=== PATIENT | female | born 1935 | race Caucasian/White ===

== ENCOUNTER 2019-03-12 20:00 | Inpatient (IN) | payer OTHER, MEDICAID ==
[~2019-03-12] VITALS: Ht 154.9 cm; Wt 49.9 kg
[2019-03-12 20:00] VITALS: BP_SYST 184
[~2019-03-12 20:00] MED LIST: ALPHAGANP EACH EYE; ASPI-1153 PO; ATOR10TA68 PO; BETH25TA10 PO; BIMA2.5D5 BOTH EYES; COLC0.6T67 PO; DOCU250C14 PO; HUM10VIA7 SUBCUT; HYDR25TA4 PO; LEVO100T9 PO; METO-442 PO; QUET300T2 PO; ZALE5CAP2 PO
[2019-03-12] MEDS ORDERED: IPRATROPIUM/ALBUTEROL SULFATE 3 ML AMPUL.NEB (DUONEB) INH ONE (20:30)
[2019-03-12] MEDS ORDERED: methylPREDNISolone SOD SUCC/PF 62.5 MG/ML VIAL IVP ONE (20:30)
[2019-03-12] MEDS ORDERED: ALBUTEROL SULFATE 0.083% 2.5 MG/3 ML VIAL.NEB INH ONE (20:30)
[2019-03-12 20:39] LABS: BASOPHILS # (AUTO) 0.2 K/uL (0.0-0.2); BASOPHILS % (AUTO) 1.8 % (0.0-2.0); EOSINOPHILS # (AUTO) 0.2 K/uL (0.0-0.4); EOSINOPHILS % (AUTO) 1.4 % (0.0-4.0); HEMATOCRIT 38.3 % (36-48); HEMOGLOBIN 12.5 g/dL (12.0-16.0); LYMPHOCYTES # (AUTO) 4.7 K/uL (1.0-5.5); LYMPHOCYTES % (AUTO) 37.5 % (20.5-51.5); MEAN CORPUSCULAR HEMOGLOBIN 30 pg (27-31); MEAN CORPUSCULAR HGB CONC 33 % (32-36); MEAN CORPUSCULAR VOLUME 92 fL (79.0-98.0); MONOCYTES % (AUTO) 7.7 % (1.7-9.3); NEUTROPHILS # (AUTO) 6.5 K/uL (1.8-7.7); NEUTROPHILS % (AUTO) 51.6 % (40.0-70.0); PLATELET COUNT (AUTO) 415 K/uL (130-430); RED BLOOD CELL COUNT(AUTO) 4.18 MIL/uL (4.2-6.2); RED CELL DISTRIBUTION WIDTH 13.7 % (9.0-15.0); WHITE BLOOD COUNT (AUTO) 12.5 K/uL (4.8-10.8)
[2019-03-12 21:10] LABS: ALANINE AMINOTRANSFERASE 31 U/L (12-78); ALBUMIN 3.6 g/dL (3.4-4.8); ANION GAP 9 (5-15); ASPARTATE AMINOTRANSFERASE 31 U/L (10-37); CHLORIDE 95 mmol/L (98-107); CREATININE 1.14 mg/dL (0.55-1.30); GLUCOSE 261 mg/dL (70-99); SODIUM SERUM 136 mmol/L (136-145); TOTAL BILIRUBIN 0.2 mg/dL (0.0-1.0); UREA NITROGEN, BLOOD 16 mg/dL (8-21)
[2019-03-12 21:12] LABS: CALCIUM 9.7 mg/dL (8.4-11.0)
[2019-03-12] MEDS ORDERED: GLUXR500 PO (21:45)
[2019-03-12] MEDS ORDERED: IPRA4AER INH (21:45)
[2019-03-12] MEDS ORDERED: MORPHINE SULFATE SL (21:45)
[2019-03-12] MEDS ORDERED: DOCU-144 PO (21:45)
[2019-03-12] MEDS ORDERED: ACET-2165 RC (21:45)
[2019-03-12] MEDS ORDERED: LISI-209 PO (21:45)
[2019-03-12] MEDS ORDERED: PRO40 PO (21:45)
[2019-03-12] MEDS ORDERED: BENZ0.5T43 PO (21:45)
[2019-03-12] MEDS ORDERED: SER100 PO (21:45)
[2019-03-12] MEDS ORDERED: ESCI10TA PO (21:45)
[2019-03-12] MEDS ORDERED: PROC10TA13 PO (21:45)
[2019-03-12] MEDS ORDERED: NACL 0.9% 1,700 ML IV ONE (21:45)
[2019-03-12] MEDS ORDERED: INSU100V11 SQ (21:45)
[2019-03-12] MEDS ORDERED: TRAZ-219 PO (21:45)
[2019-03-12] MEDS ORDERED: XALEYE OP (21:45)
[2019-03-12] MEDS ORDERED: SSREG SUBCUT (21:45)
[2019-03-12] MEDS ORDERED: FURO-149 PO (21:45)
[2019-03-12] MEDS ORDERED: TRAMADOL PO (21:45)
[2019-03-12] MEDS ORDERED: BIMA2.5D5 OP (21:45)
[2019-03-12] MEDS ORDERED: LORA-259 PO (21:45)
[2019-03-12] MEDS ORDERED: ATROPINE SULFATE 1% SL (21:45)
[2019-03-12] MEDS ORDERED: PROC25SU2 RC (21:45)
[2019-03-12 22:20] VITALS: BP_SYST 174
[2019-03-12 22:40] VITALS: BP_SYST 174
[2019-03-12 22:43] VITALS: BP_SYST 184
[2019-03-12 23:00] VITALS: BP_SYST 194
[2019-03-12] MEDS ORDERED: LORazepam 1 MG TABLET PO PRN (23:15)
[2019-03-12] MEDS ORDERED: ACETAMINOPHEN 325 MG TABLET PO PRN (23:15)
[2019-03-12] MEDS ORDERED: PROCHLORPERAZINE MALEATE 10 MG TABLET PO PRN (23:15)
[2019-03-12] MEDS ORDERED: D5W 1,000 ML IV PRN (23:24)
[2019-03-12] MEDS ORDERED: D5/0.45 NS 1,000 ML IV SCH (23:24)
[2019-03-12] MEDS ORDERED: DEXTROSE 50% JECT 50 ML DISP.SYRIN IVP PRN (23:30)
[2019-03-12] MEDS ORDERED: ALBUTEROL SULFATE 0.083% 2.5 MG/3 ML VIAL.NEB INH PRN (23:30)
[2019-03-12] MEDS ORDERED: IPRATROPIUM BROM 0.5 MG/2.5 ML VIAL.NEB (ATROVENT) INH PRN (23:30)
[2019-03-12] MEDS ORDERED: GLUCOSE 15 GM GEL (in 37.5 GM TUBE) PO PRN (23:30)
[2019-03-12] MEDS: IPRATROPIUM/ALBUTEROL SULFATE 3 ML AMPUL.NEB (DUONEB) INH SCH (23:30)
[2019-03-12] MEDS ORDERED: ONDANSETRON HCL 4 MG/2 ML VIAL IVP PRN (23:30)
[2019-03-12] MEDS ORDERED: IPRATROPIUM/ALBUTEROL SULFATE 3 ML AMPUL.NEB (DUONEB) INH PRN (23:30)
[2019-03-12] MEDS ORDERED: IPRATROPIUM/ALBUTEROL SULFATE 3 ML AMPUL.NEB (DUONEB) ONE (23:43)
[2019-03-12] MEDS ORDERED: LORazepam 2 MG/ML VIAL ONE (23:51)
[2019-03-12] MEDS: LORazepam 2 MG/ML VIAL IM PRN (23:51)
[2019-03-13] VITALS (31 sets, daily range): BP systolic 71–193
[2019-03-13] MEDS: methylPREDNISolone SOD SUCC/PF 62.5 MG/ML VIAL IVP SCH ×4 (00:05→22:57)
[2019-03-13] MEDS ORDERED: methylPREDNISolone SOD SUCC/PF 62.5 MG/ML VIAL ONE (00:11)
[2019-03-13] MEDS ORDERED: LEVOFLOXACIN 500 MG/D5W 100 ML IV ONE ×2 (01:30→01:42)
[2019-03-13] MEDS: INSULIN REGULAR, HUMAN 100 UNITS/ML, 10 ML VIAL (humuLIN R) SUBCUT PRN ×6 (02:36→23:01)
[2019-03-13] MEDS: LORazepam 2 MG/ML VIAL IM PRN ×3 (03:22→06:36)
[2019-03-13] MEDS: IPRATROPIUM/ALBUTEROL SULFATE 3 ML AMPUL.NEB (DUONEB) INH SCH ×5 (03:57→23:23)
[2019-03-13] MEDS ORDERED: LORazepam 2 MG/ML VIAL IM PRN (05:30)
[2019-03-13 06:15] LABS: BASOPHILS # (AUTO) 0.2 K/uL (0.0-0.2); BASOPHILS % (AUTO) 1.1 % (0.0-2.0); HEMATOCRIT 35.1 % (36-48); HEMOGLOBIN 11.4 g/dL (12.0-16.0); LYMPHOCYTES # (AUTO) 0.8 K/uL (1.0-5.5); LYMPHOCYTES % (AUTO) 6.1 % (20.5-51.5); MEAN CORPUSCULAR HEMOGLOBIN 30 pg (27-31); MEAN CORPUSCULAR HGB CONC 33 % (32-36); MEAN CORPUSCULAR VOLUME 92 fL (79.0-98.0); MONOCYTES # (AUTO) 0.7 K/uL (0.0-1.0); MONOCYTES % (AUTO) 5.5 % (1.7-9.3); NEUTROPHILS # (AUTO) 11.6 K/uL (1.8-7.7); NEUTROPHILS % (AUTO) 87.3 % (40.0-70.0); PLATELET COUNT (AUTO) 376 K/uL (130-430); RED BLOOD CELL COUNT(AUTO) 3.82 MIL/uL (4.2-6.2); RED CELL DISTRIBUTION WIDTH 13.9 % (9.0-15.0); WHITE BLOOD COUNT (AUTO) 13.3 K/uL (4.8-10.8)
[2019-03-13 07:14] LABS: ALANINE AMINOTRANSFERASE 24 U/L (12-78); ALBUMIN 3.3 g/dL (3.4-4.8); ANION GAP 11 (5-15); ASPARTATE AMINOTRANSFERASE 24 U/L (10-37); CALCIUM 8.8 mg/dL (8.4-11.0); CHLORIDE 99 mmol/L (98-107); CREATININE 1.06 mg/dL (0.55-1.30); GLUCOSE 297 mg/dL (70-99); PHOSPHORUS 2.8 mg/dL (2.7-4.5); POTASSIUM 3.8 mmol/L (3.5-5.1); SODIUM SERUM 140 mmol/L (136-145); TOTAL BILIRUBIN 0.2 mg/dL (0.0-1.0); UREA NITROGEN, BLOOD 13 mg/dL (8-21)
[2019-03-13] MEDS ORDERED: traMADol HCL HCL 50 MG TABLET (ULTRAM) PO PRN (07:45)
[2019-03-13] MEDS ORDERED: LORazepam 2 MG/ML VIAL IVP PRN (08:30)
[2019-03-13] MEDS ORDERED: BRIMONIDINE TARTRATE 0.15% 5 mL EYE DROPS EACH EYE SCH (09:00)
[2019-03-13] MEDS: LEVOFLOXACIN 250 MG/D5W 50 ML IV SCH (09:00)
[2019-03-13] MEDS ORDERED: methylPREDNISolone SOD SUCC 40 MG/ML VIAL IVP SCH (09:00)
[2019-03-13] MEDS ORDERED: MIDAZOLAM HCL 5 MG/5 ML VIAL ONE ×2 (10:14→10:28)
[2019-03-13] MEDS ORDERED: PROPOFOL DRIP 100 ML IV ONE (10:52)
[2019-03-13] MEDS ORDERED: ENOXAPARIN SODIUM 40 MG/0.4 ML SYRINGE SUBCUT ONE (11:15)
[2019-03-13] MEDS: BRIMONIDINE TARTRATE 0.2% 5 mL EYE DROPS OP SCH ×3 (11:32→20:59)
[2019-03-13] MEDS: ASPIRIN 81 MG TABLET(ECOTRIN) PO SCH (11:33)
[2019-03-13] MEDS: DOCUSATE SODIUM 100 MG CAPSULE PO SCH ×2 (11:33→20:59)
[2019-03-13] MEDS: BENZTROPINE MESYLATE 1 MG TABLET PO SCH (11:33)
[2019-03-13] MEDS: CITALOPRAM HYDROBROMIDE 20 MG TABLET PO SCH (11:35)
[2019-03-13] MEDS: LISINOPRIL 5 MG TABLET PO SCH (11:35)
[2019-03-13] MEDS: FUROSEMIDE 40 MG TABLET PO SCH (11:36)
[2019-03-13] MEDS: PANTOPRAZOLE SODIUM 40 MG TAB PO SCH (11:41)
[2019-03-13] MEDS: LEVOTHYROXINE SODIUM 0.1 MG TABLET PO SCH (11:46)
[2019-03-13] MEDS: 0.45% NACL 1,000 ML IV SCH (12:21)
[2019-03-13] MEDS: LORazepam 2 MG/ML VIAL IVP PRN ×4 (14:25→20:17)
[2019-03-13] MEDS ORDERED: NS 50 ML IV ONE (15:30)
[2019-03-13] MEDS ORDERED: NOREPINEPHRINE BITARTRATE 4 MG in NS 246 ML IV PRN (15:30)
[2019-03-13] MEDS ORDERED: NS 500 ML IV ONE (15:30)
[2019-03-13] MEDS ORDERED: ETOMIDATE 20 MG/ 10 ML VIAL (AMIDATE) IVP ONE (15:53)
[2019-03-13] MEDS: PROPOFOL DRIP 100 ML IV PRN (20:07)
[2019-03-13] MEDS ORDERED: LATANOPROST 2.5 ML DROPS (XALATAN) OP SCH (21:00)
[2019-03-13] MEDS ORDERED: BIMATOPROST 0.01%, 2.5 ML EYE DROPS OP SCH (21:00)
[2019-03-13] MEDS: QUEtiapine FUMARATE 100 MG TABLET PO SCH (21:00)
[2019-03-13] MEDS ORDERED: INSULIN DETEMIR 20 UNIT SQ SCH (21:00)
[2019-03-13] MEDS: traZODone HCL 50 MG TABLET (DESYREL) PO PRN (21:00)
[2019-03-13] MEDS: LATANOPROST 2.5 ML DROPS (XALATAN) OP SCH (21:03)
[2019-03-13] MEDS: INSULIN GLARGINE 100 UNITS/ML 10 ML VIAL SUBCUT SCH (23:06)
[2019-03-14] VITALS (34 sets, daily range): BP systolic 90–133
[2019-03-14] MEDS: 0.45% NACL 1,000 ML IV SCH ×2 (02:35→18:51)
[2019-03-14] MEDS: LORazepam 2 MG/ML VIAL IVP PRN ×3 (02:35→18:51)
[2019-03-14] MEDS: INSULIN REGULAR, HUMAN 100 UNITS/ML, 10 ML VIAL (humuLIN R) SUBCUT PRN ×5 (02:39→22:55)
[2019-03-14] MEDS: IPRATROPIUM/ALBUTEROL SULFATE 3 ML AMPUL.NEB (DUONEB) INH SCH ×4 (03:20→19:37)
[2019-03-14] MEDS: PROPOFOL DRIP 100 ML IV PRN ×2 (04:13→14:45)
[2019-03-14] MEDS: methylPREDNISolone SOD SUCC/PF 62.5 MG/ML VIAL IVP SCH ×3 (05:03→22:49)
[2019-03-14 05:52] LABS: BASOPHILS % (AUTO) 0.2 % (0.0-2.0); HEMATOCRIT 29.5 % (36-48); HEMOGLOBIN 9.8 g/dL (12.0-16.0); LYMPHOCYTES # (AUTO) 1.6 K/uL (1.0-5.5); LYMPHOCYTES % (AUTO) 7.7 % (20.5-51.5); MEAN CORPUSCULAR HEMOGLOBIN 30 pg (27-31); MEAN CORPUSCULAR HGB CONC 33 % (32-36); MEAN CORPUSCULAR VOLUME 90 fL (79.0-98.0); MONOCYTES % (AUTO) 4.9 % (1.7-9.3); NEUTROPHILS # (AUTO) 18.1 K/uL (1.8-7.7); NEUTROPHILS % (AUTO) 87.2 % (40.0-70.0); PLATELET COUNT (AUTO) 316 K/uL (130-430); RED BLOOD CELL COUNT(AUTO) 3.27 MIL/uL (4.2-6.2); RED CELL DISTRIBUTION WIDTH 14.1 % (9.0-15.0); WHITE BLOOD COUNT (AUTO) 20.7 K/uL (4.8-10.8)
[2019-03-14 06:20] LABS: ALANINE AMINOTRANSFERASE 27 U/L (12-78); ALBUMIN 2.7 g/dL (3.4-4.8); ANION GAP 6 (5-15); ASPARTATE AMINOTRANSFERASE 31 U/L (10-37); CHLORIDE 101 mmol/L (98-107); CREATININE 0.95 mg/dL (0.55-1.30); GLUCOSE 166 mg/dL (70-99); SODIUM SERUM 137 mmol/L (136-145); TOTAL BILIRUBIN 0.1 mg/dL (0.0-1.0); UREA NITROGEN, BLOOD 19 mg/dL (8-21)
[2019-03-14 06:25] LABS: POTASSIUM 2.6 mmol/L (3.5-5.1)
[2019-03-14 06:34] LABS: CALCIUM 8.3 mg/dL (8.4-11.0)
[2019-03-14] MEDS ORDERED: KCL 40 mEq in 100 mL (PREMIX) 100 ML IV ONE (07:15)
[2019-03-14 07:57] LABS: ERYTHROCYTE SEDIMENTATION RATE 10 MM/HR (0-20)
[2019-03-14] MEDS: BRIMONIDINE TARTRATE 0.2% 5 mL EYE DROPS OP SCH ×3 (08:29→20:18)
[2019-03-14] MEDS: ASPIRIN 81 MG TABLET(ECOTRIN) PO SCH (08:29)
[2019-03-14] MEDS: LEVOFLOXACIN 250 MG/D5W 50 ML IV SCH (08:29)
[2019-03-14] MEDS: BENZTROPINE MESYLATE 1 MG TABLET PO SCH (08:32)
[2019-03-14] MEDS: LEVOTHYROXINE SODIUM 0.1 MG TABLET PO SCH (08:32)
[2019-03-14] MEDS: PANTOPRAZOLE SODIUM 40 MG TAB PO SCH (08:32)
[2019-03-14] MEDS: CITALOPRAM HYDROBROMIDE 20 MG TABLET PO SCH (08:32)
[2019-03-14] MEDS: FUROSEMIDE 40 MG TABLET PO SCH (08:33)
[2019-03-14] MEDS: DOCUSATE SODIUM 100 MG CAPSULE PO SCH ×2 (08:33→20:18)
[2019-03-14] MEDS: ENOXAPARIN SODIUM 40 MG/0.4 ML SYRINGE SUBCUT SCH (08:34)
[2019-03-14] MEDS: LISINOPRIL 5 MG TABLET PO SCH (09:00)
[2019-03-14] MEDS ORDERED: POTASSIUM CHLORIDE 20 MEQ/PKT PACKET PO ONE (10:00)
[2019-03-14] MEDS: AZITHROMYCIN 500 MG in NS 250 ML IV SCH (18:52)
[2019-03-14] MEDS: LATANOPROST 2.5 ML DROPS (XALATAN) OP SCH (20:17)
[2019-03-14] MEDS: CEFEPIME 1 GM in D5W 50 ML IV SCH (20:17)
[2019-03-14] MEDS: QUEtiapine FUMARATE 100 MG TABLET PO SCH (20:18)
[2019-03-14] MEDS: INSULIN GLARGINE 100 UNITS/ML 10 ML VIAL SUBCUT SCH (21:01)
[2019-03-14] MEDS: metroNIDAZOLE 500 mg/NS 100 ML IV SCH (22:48)
[2019-03-15] VITALS (35 sets, daily range): BP systolic 90–149
[2019-03-15] MEDS: IPRATROPIUM/ALBUTEROL SULFATE 3 ML AMPUL.NEB (DUONEB) INH SCH ×4 (00:34→20:00)
[2019-03-15] MEDS: INSULIN REGULAR, HUMAN 100 UNITS/ML, 10 ML VIAL (humuLIN R) SUBCUT PRN ×6 (03:13→23:20)
[2019-03-15] MEDS: PROPOFOL DRIP 100 ML IV PRN ×3 (03:47→17:52)
[2019-03-15 05:45] LABS: BASOPHILS # (AUTO) 0.1 K/uL (0.0-0.2); BASOPHILS % (AUTO) 0.3 % (0.0-2.0); HEMATOCRIT 31.2 % (36-48); HEMOGLOBIN 10.3 g/dL (12.0-16.0); LYMPHOCYTES # (AUTO) 5.6 K/uL (1.0-5.5); LYMPHOCYTES % (AUTO) 24.2 % (20.5-51.5); MEAN CORPUSCULAR HEMOGLOBIN 30 pg (27-31); MEAN CORPUSCULAR HGB CONC 33 % (32-36); MEAN CORPUSCULAR VOLUME 91 fL (79.0-98.0); MONOCYTES # (AUTO) 1.2 K/uL (0.0-1.0); MONOCYTES % (AUTO) 5.1 % (1.7-9.3); NEUTROPHILS # (AUTO) 16.4 K/uL (1.8-7.7); NEUTROPHILS % (AUTO) 70.4 % (40.0-70.0); PLATELET COUNT (AUTO) 304 K/uL (130-430); RED BLOOD CELL COUNT(AUTO) 3.42 MIL/uL (4.2-6.2); RED CELL DISTRIBUTION WIDTH 14.5 % (9.0-15.0); WHITE BLOOD COUNT (AUTO) 23.3 K/uL (4.8-10.8)
[2019-03-15 06:09] LABS: C-REACTIVE PROTEIN QUANT 2.2 mg/dL (0-0.5)
[2019-03-15 06:18] LABS: ALANINE AMINOTRANSFERASE 34 U/L (12-78); ALBUMIN 2.5 g/dL (3.4-4.8); ANION GAP 5 (5-15); ASPARTATE AMINOTRANSFERASE 38 U/L (10-37); CHLORIDE 103 mmol/L (98-107); CREATININE 0.79 mg/dL (0.55-1.30); GLUCOSE 247 mg/dL (70-99); POTASSIUM 4.2 mmol/L (3.5-5.1); SODIUM SERUM 135 mmol/L (136-145); TOTAL BILIRUBIN 0.3 mg/dL (0.0-1.0); UREA NITROGEN, BLOOD 23 mg/dL (8-21)
[2019-03-15] MEDS: methylPREDNISolone SOD SUCC/PF 62.5 MG/ML VIAL IVP SCH ×3 (06:42→21:13)
[2019-03-15] MEDS: metroNIDAZOLE 500 mg/NS 100 ML IV SCH ×3 (06:42→21:13)
[2019-03-15] MEDS: LORazepam 2 MG/ML VIAL IVP PRN ×3 (06:51→21:13)
[2019-03-15 07:45] LABS: ERYTHROCYTE SEDIMENTATION RATE 11 MM/HR (0-20)
[2019-03-15] MEDS: LISINOPRIL 5 MG TABLET PO SCH (09:00)
[2019-03-15] MEDS: CEFEPIME 1 GM in D5W 50 ML IV SCH ×2 (09:41→20:40)
[2019-03-15] MEDS: ASPIRIN 81 MG TABLET(ECOTRIN) PO SCH (09:41)
[2019-03-15] MEDS: DOCUSATE SODIUM 100 MG CAPSULE PO SCH ×2 (09:41→20:44)
[2019-03-15] MEDS: PANTOPRAZOLE SODIUM 40 MG TAB PO SCH (09:41)
[2019-03-15] MEDS: CITALOPRAM HYDROBROMIDE 20 MG TABLET PO SCH (09:41)
[2019-03-15] MEDS: BENZTROPINE MESYLATE 1 MG TABLET PO SCH (09:41)
[2019-03-15] MEDS: LEVOTHYROXINE SODIUM 0.1 MG TABLET PO SCH (09:41)
[2019-03-15] MEDS: FUROSEMIDE 40 MG TABLET PO SCH (09:43)
[2019-03-15] MEDS: BRIMONIDINE TARTRATE 0.2% 5 mL EYE DROPS OP SCH ×3 (09:43→20:42)
[2019-03-15] MEDS: ENOXAPARIN SODIUM 40 MG/0.4 ML SYRINGE SUBCUT SCH (09:44)
[2019-03-15] MEDS: 0.45% NACL 1,000 ML IV SCH (13:52)
[2019-03-15] MEDS: AZITHROMYCIN 500 MG in NS 250 ML IV SCH (17:51)
[2019-03-15] MEDS: LATANOPROST 2.5 ML DROPS (XALATAN) OP SCH (20:43)
[2019-03-15] MEDS: traZODone HCL 50 MG TABLET (DESYREL) PO PRN (20:44)
[2019-03-15] MEDS: QUEtiapine FUMARATE 100 MG TABLET PO SCH (20:44)
[2019-03-15] MEDS: INSULIN GLARGINE 100 UNITS/ML 10 ML VIAL SUBCUT SCH (20:49)
[2019-03-16] VITALS (33 sets, daily range): BP systolic 98–184
[2019-03-16] MEDS: IPRATROPIUM/ALBUTEROL SULFATE 3 ML AMPUL.NEB (DUONEB) INH SCH ×4 (01:37→19:58)
[2019-03-16] MEDS: INSULIN REGULAR, HUMAN 100 UNITS/ML, 10 ML VIAL (humuLIN R) SUBCUT PRN ×6 (03:12→23:19)
[2019-03-16 05:35] LABS: BASOPHILS # (AUTO) 0.1 K/uL (0.0-0.2); BASOPHILS % (AUTO) 0.5 % (0.0-2.0); EOSINOPHILS # (AUTO) 0.8 K/uL (0.0-0.4); EOSINOPHILS % (AUTO) 3.9 % (0.0-4.0); HEMATOCRIT 35.8 % (36-48); HEMOGLOBIN 11.6 g/dL (12.0-16.0); LYMPHOCYTES # (AUTO) 0.9 K/uL (1.0-5.5); LYMPHOCYTES % (AUTO) 4.4 % (20.5-51.5); MEAN CORPUSCULAR HEMOGLOBIN 30 pg (27-31); MEAN CORPUSCULAR HGB CONC 33 % (32-36); MEAN CORPUSCULAR VOLUME 92 fL (79.0-98.0); MONOCYTES # (AUTO) 3.5 K/uL (0.0-1.0); MONOCYTES % (AUTO) 17.9 % (1.7-9.3); NEUTROPHILS # (AUTO) 14.4 K/uL (1.8-7.7); NEUTROPHILS % (AUTO) 73.3 % (40.0-70.0); PLATELET COUNT (AUTO) 333 K/uL (130-430); RED CELL DISTRIBUTION WIDTH 14.8 % (9.0-15.0); WHITE BLOOD COUNT (AUTO) 19.7 K/uL (4.8-10.8)
[2019-03-16] MEDS: metroNIDAZOLE 500 mg/NS 100 ML IV SCH (05:53)
[2019-03-16 05:54] LABS: ANION GAP 10 (5-15); CALCIUM 8.8 mg/dL (8.4-11.0); CHLORIDE 104 mmol/L (98-107); CREATININE 0.88 mg/dL (0.55-1.30); GLUCOSE 197 mg/dL (70-99); POTASSIUM 4.3 mmol/L (3.5-5.1); SODIUM SERUM 142 mmol/L (136-145); UREA NITROGEN, BLOOD 23 mg/dL (8-21)
[2019-03-16] MEDS: methylPREDNISolone SOD SUCC/PF 62.5 MG/ML VIAL IVP SCH ×3 (05:54→21:02)
[2019-03-16 06:28] LABS: C-REACTIVE PROTEIN QUANT 3.8 mg/dL (0-0.5)
[2019-03-16] MEDS: CEFEPIME 1 GM in D5W 50 ML IV SCH ×2 (08:13→21:00)
[2019-03-16] MEDS: BRIMONIDINE TARTRATE 0.2% 5 mL EYE DROPS OP SCH ×3 (08:14→21:01)
[2019-03-16] MEDS: MORPHINE 2 MG/ML INJ. SYRINGE IVP PRN ×2 (08:15→11:43)
[2019-03-16] MEDS: ENOXAPARIN SODIUM 40 MG/0.4 ML SYRINGE SUBCUT SCH (08:18)
[2019-03-16] MEDS: PANTOPRAZOLE SODIUM 40 MG TAB PO SCH (08:19)
[2019-03-16] MEDS: BENZTROPINE MESYLATE 1 MG TABLET PO SCH (08:20)
[2019-03-16] MEDS: ASPIRIN 81 MG TABLET(ECOTRIN) PO SCH (08:20)
[2019-03-16] MEDS: DOCUSATE SODIUM 100 MG CAPSULE PO SCH ×2 (08:20→21:01)
[2019-03-16] MEDS: LEVOTHYROXINE SODIUM 0.1 MG TABLET PO SCH (08:20)
[2019-03-16] MEDS: FUROSEMIDE 40 MG TABLET PO SCH (08:20)
[2019-03-16] MEDS: CITALOPRAM HYDROBROMIDE 20 MG TABLET PO SCH (08:20)
[2019-03-16] MEDS: LISINOPRIL 5 MG TABLET PO SCH (08:21)
[2019-03-16] MEDS: LORazepam 2 MG/ML VIAL IVP PRN ×2 (08:43→11:43)
[2019-03-16 08:51] LABS: ERYTHROCYTE SEDIMENTATION RATE 22 MM/HR (0-20)
[2019-03-16] MEDS ORDERED: LINEZOLID 300 ML IV ONE (12:00)
[2019-03-16] MEDS: 0.45% NACL 1,000 ML IV SCH (13:19)
[2019-03-16] MEDS: AZITHROMYCIN 500 MG in NS 250 ML IV SCH (17:22)
[2019-03-16] MEDS: PROPOFOL DRIP 100 ML IV PRN (17:53)
[2019-03-16] MEDS: QUEtiapine FUMARATE 100 MG TABLET PO SCH (21:00)
[2019-03-16] MEDS: LATANOPROST 2.5 ML DROPS (XALATAN) OP SCH (21:01)
[2019-03-16] MEDS: INSULIN GLARGINE 100 UNITS/ML 10 ML VIAL SUBCUT SCH (21:04)
[2019-03-16] MEDS: LINEZOLID 300 ML IV SCH (23:17)
[2019-03-17] VITALS (33 sets, daily range): BP systolic 99–173
[2019-03-17] MEDS: IPRATROPIUM/ALBUTEROL SULFATE 3 ML AMPUL.NEB (DUONEB) INH SCH ×4 (02:01→19:40)
[2019-03-17] MEDS: INSULIN REGULAR, HUMAN 100 UNITS/ML, 10 ML VIAL (humuLIN R) SUBCUT PRN ×6 (02:15→22:31)
[2019-03-17] MEDS: methylPREDNISolone SOD SUCC/PF 62.5 MG/ML VIAL IVP SCH ×3 (06:01→22:29)
[2019-03-17] MEDS: 0.45% NACL 1,000 ML IV SCH (06:01)
[2019-03-17 06:12] LABS: BASOPHILS # (AUTO) 0.2 K/uL (0.0-0.2); BASOPHILS % (AUTO) 0.9 % (0.0-2.0); EOSINOPHILS % (AUTO) 0.1 % (0.0-4.0); HEMATOCRIT 31.6 % (36-48); HEMOGLOBIN 10.3 g/dL (12.0-16.0); LYMPHOCYTES # (AUTO) 0.8 K/uL (1.0-5.5); LYMPHOCYTES % (AUTO) 4.1 % (20.5-51.5); MEAN CORPUSCULAR HEMOGLOBIN 30 pg (27-31); MEAN CORPUSCULAR HGB CONC 33 % (32-36); MEAN CORPUSCULAR VOLUME 92 fL (79.0-98.0); MONOCYTES # (AUTO) 1.7 K/uL (0.0-1.0); NEUTROPHILS # (AUTO) 15.8 K/uL (1.8-7.7); NEUTROPHILS % (AUTO) 85.9 % (40.0-70.0); PLATELET COUNT (AUTO) 311 K/uL (130-430); RED BLOOD CELL COUNT(AUTO) 3.43 MIL/uL (4.2-6.2); RED CELL DISTRIBUTION WIDTH 14.9 % (9.0-15.0); WHITE BLOOD COUNT (AUTO) 18.4 K/uL (4.8-10.8)
[2019-03-17] MEDS: PROPOFOL DRIP 100 ML IV PRN ×2 (06:17→18:47)
[2019-03-17 06:40] LABS: ALANINE AMINOTRANSFERASE 44 U/L (12-78); ALBUMIN 2.2 g/dL (3.4-4.8); ASPARTATE AMINOTRANSFERASE 22 U/L (10-37); C-REACTIVE PROTEIN QUANT 1.6 mg/dL (0-0.5); CREATININE 0.83 mg/dL (0.55-1.30); GLUCOSE 252 mg/dL (70-99); POTASSIUM 4.1 mmol/L (3.5-5.1); TOTAL BILIRUBIN 0.4 mg/dL (0.0-1.0); UREA NITROGEN, BLOOD 26 mg/dL (8-21)
[2019-03-17 06:48] LABS: ANION GAP 5 (5-15); CHLORIDE 103 mmol/L (98-107); SODIUM SERUM 137 mmol/L (136-145)
[2019-03-17 07:07] LABS: CALCIUM 8.2 mg/dL (8.4-11.0)
[2019-03-17 08:47] LABS: ERYTHROCYTE SEDIMENTATION RATE 12 MM/HR (0-20)
[2019-03-17] MEDS: ASPIRIN 81 MG TABLET(ECOTRIN) PO SCH (09:06)
[2019-03-17] MEDS: LORazepam 2 MG/ML VIAL IVP PRN ×3 (09:06→18:49)
[2019-03-17] MEDS: PANTOPRAZOLE SODIUM 40 MG TAB PO SCH (09:06)
[2019-03-17] MEDS: MORPHINE 2 MG/ML INJ. SYRINGE IVP PRN (09:06)
[2019-03-17] MEDS: BENZTROPINE MESYLATE 1 MG TABLET PO SCH (09:07)
[2019-03-17] MEDS: FUROSEMIDE 40 MG TABLET PO SCH (09:07)
[2019-03-17] MEDS: DOCUSATE SODIUM 100 MG CAPSULE PO SCH ×2 (09:07→20:22)
[2019-03-17] MEDS: CITALOPRAM HYDROBROMIDE 20 MG TABLET PO SCH (09:07)
[2019-03-17] MEDS: LEVOTHYROXINE SODIUM 0.1 MG TABLET PO SCH (09:07)
[2019-03-17] MEDS: ENOXAPARIN SODIUM 40 MG/0.4 ML SYRINGE SUBCUT SCH (09:08)
[2019-03-17] MEDS: BRIMONIDINE TARTRATE 0.2% 5 mL EYE DROPS OP SCH ×3 (09:25→20:22)
[2019-03-17] MEDS: CEFEPIME 1 GM in D5W 50 ML IV SCH ×2 (09:25→20:20)
[2019-03-17] MEDS: LISINOPRIL 5 MG TABLET PO SCH (09:26)
[2019-03-17] MEDS: LINEZOLID 300 ML IV SCH ×2 (11:33→23:36)
[2019-03-17] MEDS: VANCOMYCIN HCL 1,000 MG in NS 250 ML IV SCH (16:22)
[2019-03-17 17:06] LABS: MYCOPLASMA PNEUMONIAE IgM <770 U/mL (0-769)
[2019-03-17] MEDS: AZITHROMYCIN 500 MG in NS 250 ML IV SCH (17:57)
[2019-03-17] MEDS: INSULIN GLARGINE 100 UNITS/ML 10 ML VIAL SUBCUT SCH (20:21)
[2019-03-17] MEDS: QUEtiapine FUMARATE 100 MG TABLET PO SCH (20:22)
[2019-03-17] MEDS: LATANOPROST 2.5 ML DROPS (XALATAN) OP SCH (20:23)
[2019-03-18] VITALS (30 sets, daily range): BP systolic 104–164
[2019-03-18] MEDS: IPRATROPIUM/ALBUTEROL SULFATE 3 ML AMPUL.NEB (DUONEB) INH SCH ×4 (01:06→19:45)
[2019-03-18] MEDS: INSULIN REGULAR, HUMAN 100 UNITS/ML, 10 ML VIAL (humuLIN R) SUBCUT PRN ×5 (02:12→23:18)
[2019-03-18] MEDS: methylPREDNISolone SOD SUCC/PF 62.5 MG/ML VIAL IVP SCH (05:00)
[2019-03-18] MEDS: PROPOFOL DRIP 100 ML IV PRN (05:08)
[2019-03-18 06:25] LABS: BASOPHILS # (AUTO) 0.1 K/uL (0.0-0.2); BASOPHILS % (AUTO) 0.5 % (0.0-2.0); EOSINOPHILS % (AUTO) 0.1 % (0.0-4.0); HEMATOCRIT 34.1 % (36-48); LYMPHOCYTES # (AUTO) 1.7 K/uL (1.0-5.5); LYMPHOCYTES % (AUTO) 9.7 % (20.5-51.5); MEAN CORPUSCULAR HEMOGLOBIN 30 pg (27-31); MEAN CORPUSCULAR HGB CONC 32 % (32-36); MEAN CORPUSCULAR VOLUME 92 fL (79.0-98.0); MONOCYTES % (AUTO) 5.8 % (1.7-9.3); NEUTROPHILS # (AUTO) 14.4 K/uL (1.8-7.7); PLATELET COUNT (AUTO) 355 K/uL (130-430); RED CELL DISTRIBUTION WIDTH 14.4 % (9.0-15.0); WHITE BLOOD COUNT (AUTO) 17.2 K/uL (4.8-10.8)
[2019-03-18 06:39] LABS: ALANINE AMINOTRANSFERASE 39 U/L (12-78); ALBUMIN 2.5 g/dL (3.4-4.8); ANION GAP 3 (5-15); ASPARTATE AMINOTRANSFERASE 14 U/L (10-37); CALCIUM 8.7 mg/dL (8.4-11.0); CHLORIDE 105 mmol/L (98-107); CREATININE 0.75 mg/dL (0.55-1.30); GLUCOSE 207 mg/dL (70-99); POTASSIUM 4.3 mmol/L (3.5-5.1); SODIUM SERUM 142 mmol/L (136-145); TOTAL BILIRUBIN 0.3 mg/dL (0.0-1.0); UREA NITROGEN, BLOOD 20 mg/dL (8-21)
[2019-03-18 07:50] LABS: C-REACTIVE PROTEIN QUANT 0.7 mg/dL (0-0.5)
[2019-03-18] MEDS: CEFEPIME 1 GM in D5W 50 ML IV SCH ×2 (07:58→21:28)
[2019-03-18] MEDS: ASPIRIN 81 MG TABLET(ECOTRIN) PO SCH (07:59)
[2019-03-18] MEDS: BRIMONIDINE TARTRATE 0.2% 5 mL EYE DROPS OP SCH ×3 (07:59→21:29)
[2019-03-18] MEDS: PANTOPRAZOLE SODIUM 40 MG TAB PO SCH (08:03)
[2019-03-18] MEDS: LISINOPRIL 5 MG TABLET PO SCH (08:03)
[2019-03-18] MEDS: BENZTROPINE MESYLATE 1 MG TABLET PO SCH (08:04)
[2019-03-18] MEDS: FUROSEMIDE 40 MG TABLET PO SCH (08:04)
[2019-03-18] MEDS: DOCUSATE SODIUM 100 MG CAPSULE PO SCH ×2 (08:05→21:30)
[2019-03-18] MEDS: LORazepam 2 MG/ML VIAL IVP PRN ×3 (08:08→21:28)
[2019-03-18] MEDS: LEVOTHYROXINE SODIUM 0.1 MG TABLET PO SCH (08:09)
[2019-03-18] MEDS: ENOXAPARIN SODIUM 40 MG/0.4 ML SYRINGE SUBCUT SCH (08:10)
[2019-03-18] MEDS: CITALOPRAM HYDROBROMIDE 20 MG TABLET PO SCH (08:12)
[2019-03-18 08:42] LABS: ERYTHROCYTE SEDIMENTATION RATE 16 MM/HR (0-20)
[2019-03-18 09:49] LABS: NEUTROPHILS % (AUTO) 83.9 % (40.0-70.0)
[2019-03-18] MEDS: LINEZOLID 300 ML IV SCH ×2 (11:43→23:15)
[2019-03-18] MEDS: 0.45% NACL 1,000 ML IV SCH (15:19)
[2019-03-18] MEDS ORDERED: *TPN PER PHARMACY XX PRN (17:45)
[2019-03-18] MEDS: AZITHROMYCIN 500 MG in NS 250 ML IV SCH (18:14)
[2019-03-18] MEDS: D5NS 1,000 ML IV SCH (18:14)
[2019-03-18] MEDS: QUEtiapine FUMARATE 100 MG TABLET PO SCH (21:00)
[2019-03-18] MEDS: methylPREDNISolone SOD SUCC 40 MG/ML VIAL IVP SCH (21:28)
[2019-03-18] MEDS: LATANOPROST 2.5 ML DROPS (XALATAN) OP SCH (21:29)
[2019-03-18] MEDS: INSULIN GLARGINE 100 UNITS/ML 10 ML VIAL SUBCUT SCH (21:41)
[2019-03-19] VITALS (21 sets, daily range): BP systolic 109–149
[2019-03-19] MEDS: IPRATROPIUM/ALBUTEROL SULFATE 3 ML AMPUL.NEB (DUONEB) INH SCH ×4 (00:46→20:00)
[2019-03-19] MEDS: LORazepam 2 MG/ML VIAL IVP PRN ×7 (02:21→18:29)
[2019-03-19] MEDS: VANCOMYCIN HCL 1,000 MG in NS 250 ML IV SCH (05:01)
[2019-03-19] MEDS: INSULIN REGULAR, HUMAN 100 UNITS/ML, 10 ML VIAL (humuLIN R) SUBCUT PRN ×2 (05:03→18:38)
[2019-03-19 07:27] LABS: BASOPHILS # (AUTO) 0.1 K/uL (0.0-0.2); BASOPHILS % (AUTO) 0.4 % (0.0-2.0); HEMATOCRIT 32.3 % (36-48); HEMOGLOBIN 10.5 g/dL (12.0-16.0); LYMPHOCYTES # (AUTO) 1.7 K/uL (1.0-5.5); LYMPHOCYTES % (AUTO) 10.5 % (20.5-51.5); MEAN CORPUSCULAR HEMOGLOBIN 30 pg (27-31); MEAN CORPUSCULAR HGB CONC 33 % (32-36); MEAN CORPUSCULAR VOLUME 92 fL (79.0-98.0); MONOCYTES # (AUTO) 1.3 K/uL (0.0-1.0); MONOCYTES % (AUTO) 8.4 % (1.7-9.3); NEUTROPHILS # (AUTO) 12.7 K/uL (1.8-7.7); NEUTROPHILS % (AUTO) 80.7 % (40.0-70.0); PLATELET COUNT (AUTO) 351 K/uL (130-430); RED BLOOD CELL COUNT(AUTO) 3.49 MIL/uL (4.2-6.2); RED CELL DISTRIBUTION WIDTH 14.2 % (9.0-15.0); WHITE BLOOD COUNT (AUTO) 15.7 K/uL (4.8-10.8)
[2019-03-19 07:33] LABS: ANION GAP 2 (5-15); CALCIUM 8.1 mg/dL (8.4-11.0); CHLORIDE 105 mmol/L (98-107); CREATININE 0.71 mg/dL (0.55-1.30); GLUCOSE 187 mg/dL (70-99); POTASSIUM 3.5 mmol/L (3.5-5.1); SODIUM SERUM 144 mmol/L (136-145); UREA NITROGEN, BLOOD 14 mg/dL (8-21)
[2019-03-19 08:18] LABS: C-REACTIVE PROTEIN QUANT 0.4 mg/dL (0-0.5)
[2019-03-19] MEDS: methylPREDNISolone SOD SUCC 40 MG/ML VIAL IVP SCH ×2 (08:31→21:55)
[2019-03-19] MEDS: BRIMONIDINE TARTRATE 0.2% 5 mL EYE DROPS OP SCH ×3 (08:32→21:55)
[2019-03-19] MEDS: CEFEPIME 1 GM in D5W 50 ML IV SCH ×2 (08:32→21:48)
[2019-03-19] MEDS: D5NS 1,000 ML IV SCH (08:35)
[2019-03-19] MEDS: ASPIRIN 81 MG TABLET(ECOTRIN) PO SCH (09:00)
[2019-03-19] MEDS: LEVOTHYROXINE SODIUM 0.1 MG TABLET PO SCH (09:00)
[2019-03-19] MEDS: LISINOPRIL 5 MG TABLET PO SCH (09:00)
[2019-03-19] MEDS: FUROSEMIDE 40 MG TABLET PO SCH (09:00)
[2019-03-19] MEDS: CITALOPRAM HYDROBROMIDE 20 MG TABLET PO SCH (09:00)
[2019-03-19] MEDS: BENZTROPINE MESYLATE 1 MG TABLET PO SCH (09:00)
[2019-03-19] MEDS: DOCUSATE SODIUM 100 MG CAPSULE PO SCH ×2 (09:00→21:00)
[2019-03-19] MEDS: ENOXAPARIN SODIUM 40 MG/0.4 ML SYRINGE SUBCUT SCH (09:27)
[2019-03-19 09:48] LABS: ERYTHROCYTE SEDIMENTATION RATE 16 MM/HR (0-20)
[2019-03-19 11:12] LABS: PHOSPHORUS 3.3 mg/dL (2.7-4.5)
[2019-03-19] MEDS: LINEZOLID 300 ML IV SCH (11:22)
[2019-03-19] MEDS ORDERED: PANTOPRAZOLE SODIUM 40 MG/VIAL (PROTONIX) IVP ONE (11:45)
[2019-03-19] MEDS ORDERED: [UNRECOGNIZED DRUG - OTHER] IV SCH ×10 (21:00)
[2019-03-19] MEDS ORDERED: SODIUM CHLORIDE IV SCH ×10 (21:00)
[2019-03-19] MEDS ORDERED: FAT EMULSIONS 250 ML IV SCH (21:00)
[2019-03-19] MEDS ORDERED: TPN CENTRAL IV SCH ×10 (21:00)
[2019-03-19] MEDS: QUEtiapine FUMARATE 100 MG TABLET PO SCH (21:00)
[2019-03-19] MEDS ORDERED: POTASSIUM CHLORIDE IV SCH ×10 (21:00)
[2019-03-19] MEDS ORDERED: K PHOS IV SCH ×10 (21:00)
[2019-03-19] MEDS: LATANOPROST 2.5 ML DROPS (XALATAN) OP SCH (21:55)
[2019-03-19] MEDS: INSULIN GLARGINE 100 UNITS/ML 10 ML VIAL SUBCUT SCH (22:26)
[2019-03-20] MEDS: LORazepam 2 MG/ML VIAL IVP PRN ×2 (00:17→13:52)
[2019-03-20] MEDS: IPRATROPIUM/ALBUTEROL SULFATE 3 ML AMPUL.NEB (DUONEB) INH SCH ×3 (00:50→13:32)
[2019-03-20] MEDS: INSULIN REGULAR, HUMAN 100 UNITS/ML, 10 ML VIAL (humuLIN R) SUBCUT PRN ×2 (06:18→12:10)
[2019-03-20 07:08] LABS: BASOPHILS # (AUTO) 0.1 K/uL (0.0-0.2); BASOPHILS % (AUTO) 0.5 % (0.0-2.0); EOSINOPHILS # (AUTO) 0.1 K/uL (0.0-0.4); EOSINOPHILS % (AUTO) 0.3 % (0.0-4.0); HEMATOCRIT 34.3 % (36-48); HEMOGLOBIN 11.2 g/dL (12.0-16.0); LYMPHOCYTES # (AUTO) 1.5 K/uL (1.0-5.5); LYMPHOCYTES % (AUTO) 9.4 % (20.5-51.5); MEAN CORPUSCULAR HEMOGLOBIN 30 pg (27-31); MEAN CORPUSCULAR HGB CONC 33 % (32-36); MEAN CORPUSCULAR VOLUME 93 fL (79.0-98.0); MONOCYTES # (AUTO) 1.4 K/uL (0.0-1.0); MONOCYTES % (AUTO) 8.8 % (1.7-9.3); NEUTROPHILS # (AUTO) 13.1 K/uL (1.8-7.7); PLATELET COUNT (AUTO) 400 K/uL (130-430); RED BLOOD CELL COUNT(AUTO) 3.68 MIL/uL (4.2-6.2); WHITE BLOOD COUNT (AUTO) 16.2 K/uL (4.8-10.8)
[2019-03-20 07:29] LABS: C-REACTIVE PROTEIN QUANT < 0.2 mg/dL (0-0.5)
[2019-03-20 07:58] LABS: ALANINE AMINOTRANSFERASE 47 U/L (12-78); ALBUMIN 2.7 g/dL (3.4-4.8); ANION GAP 4 (5-15); ASPARTATE AMINOTRANSFERASE 24 U/L (10-37); CALCIUM 8.5 mg/dL (8.4-11.0); CHLORIDE 104 mmol/L (98-107); CREATININE 0.64 mg/dL (0.55-1.30); GLUCOSE 231 mg/dL (70-99); PHOSPHORUS 2.5 mg/dL (2.7-4.5); POTASSIUM 3.8 mmol/L (3.5-5.1); SODIUM SERUM 144 mmol/L (136-145); TOTAL BILIRUBIN 0.2 mg/dL (0.0-1.0); UREA NITROGEN, BLOOD 10 mg/dL (8-21)
[2019-03-20 08:00] VITALS: BP_SYST 165
[2019-03-20 08:12] LABS: ERYTHROCYTE SEDIMENTATION RATE 18 MM/HR (0-20)
[2019-03-20] MEDS ORDERED: PANTOPRAZOLE SODIUM 40 MG/VIAL (PROTONIX) IVP SCH (09:00)
[2019-03-20] MEDS: DOCUSATE SODIUM 100 MG CAPSULE PO SCH (09:11)
[2019-03-20] MEDS: CITALOPRAM HYDROBROMIDE 20 MG TABLET PO SCH (09:11)
[2019-03-20] MEDS: LEVOTHYROXINE SODIUM 0.1 MG TABLET PO SCH (09:12)
[2019-03-20] MEDS: ASPIRIN 81 MG TABLET(ECOTRIN) PO SCH (09:12)
[2019-03-20] MEDS: BENZTROPINE MESYLATE 1 MG TABLET PO SCH (09:12)
[2019-03-20] MEDS: FUROSEMIDE 40 MG TABLET PO SCH (09:14)
[2019-03-20] MEDS: LISINOPRIL 5 MG TABLET PO SCH (09:15)
[2019-03-20] MEDS: ENOXAPARIN SODIUM 40 MG/0.4 ML SYRINGE SUBCUT SCH (09:24)
[2019-03-20] MEDS: methylPREDNISolone SOD SUCC 40 MG/ML VIAL IVP SCH (09:29)
[2019-03-20] MEDS: CEFEPIME 1 GM in D5W 50 ML IV SCH (09:29)
[2019-03-20] MEDS: BRIMONIDINE TARTRATE 0.2% 5 mL EYE DROPS OP SCH (09:33)
[2019-03-20 12:06] VITALS: BP_SYST 146
[2019-03-20 14:52] VITALS: BP_SYST 146
[2019-03-20] MEDS ORDERED: TPN CENTRAL 0.0001 ML, SODIUM CHLORIDE 40 MEQ, POTASSIUM CHLORIDE 20 MEQ, K PHOS 9 MM, ... IV SCH ×10 (21:00)
== END 2019-03-20 16:30 | DRG 870 ==
LOC: SED 20:00 → SIC 22:12 → STU 03-19 20:39
PROVIDERS: ADMIT Preventive Medicine Preventive Medicine/Occupational Environmental Medicine; ATTEND Preventive Medicine Preventive Medicine/Occupational Environmental Medicine
PROC: 5A09357 Assistance with Respiratory Ventilation, Less than 24 Consecutive Hours, Continuous Positive Airway Pressure (ICD-10-PCS; principal; 2019-03-12)
PROC: 5A1955Z Respiratory Ventilation, Greater than 96 Consecutive Hours (ICD-10-PCS; 2019-03-13)
PROC: 0BH17EZ Insertion of Endotracheal Airway into Trachea, Via Natural or Artificial Opening (ICD-10-PCS; 2019-03-13)
DX: A41.9 Sepsis, unspecified organism (principal); J96.20 Acute and chronic respiratory failure, unspecified whether with hypoxia or hypercapnia; E43 Unspecified severe protein-calorie malnutrition; J15.212 Pneumonia due to Methicillin resistant Staphylococcus aureus; J69.0 Pneumonitis due to inhalation of food and vomit; J44.1 Chronic obstructive pulmonary disease with (acute) exacerbation; E87.1 Hypo-osmolality and hyponatremia; J44.0 Chronic obstructive pulmonary disease with (acute) lower respiratory infection; Z99.11 Dependence on respirator [ventilator] status; F41.9 Anxiety disorder, unspecified; D64.9 Anemia, unspecified; E03.9 Hypothyroidism, unspecified; E11.65 Type 2 diabetes mellitus with hyperglycemia; E78.5 Hyperlipidemia, unspecified; E83.39 Other disorders of phosphorus metabolism; E83.42 Hypomagnesemia; E83.51 Hypocalcemia; E83.52 Hypercalcemia; E87.5 Hyperkalemia; I10 Essential (primary) hypertension; M10.9 Gout, unspecified; R13.10 Dysphagia, unspecified; Y95 Nosocomial condition; Z51.5 Encounter for palliative care; Z88.0 Allergy status to penicillin; Z90.2 Acquired absence of lung [part of]; Z68.20 Body mass index [BMI] 20.0-20.9, adult; Z88.8 Allergy status to other drugs, medicaments and biological substances
CPT/HCPCS: 36415; 36600; 71045; 80048; 80053; 82803-TC; 82962; 83605; 83735-TC; 84100-TC; 84478-TC; 85025; 85651-TC; 86140; 86631; 86738; 87040-TC; 87070-TC; 87081; 87186-TC; 87205-TC; 87449; 92610-GN; 93005; 94002; 94003; 94640; 94660; 94760; 96361; 96374; 99291; C1751; C9113; J0456; J0610; J0692; J1030; J1120; J1650; J1815; J1956; J2020; J2060; J2250; J2270; J2405; J2704; J2930; J3370; J3475; J3480; J3490; J7030; J7040; J7042; J7050; J7060; J7131; J7613; J7620; Q0164